=== PATIENT | female | born 1935 | race Caucasian/White ===

== ENCOUNTER 2017-05-26 14:06 | Inpatient (IN) ==
[2017-05-26] MEDS ORDERED: MORPHINE IV ONE (14:45)
[2017-05-26] MEDS ORDERED: ZOFRAN IV ONE (14:45)
[2017-05-26] MEDS ORDERED: MORPHINE ONE (14:52)
[2017-05-26 15:01] LABS: URINE MICRO REVIEW NEEDED? NO; URINE SOURCE CLEAN CATCH
[2017-05-26 15:03] LABS: BASO% 0.2 % (0.0-0.8); EOS# 0.01 X1000 (0.0-0.7); EOS% 0.1 % (0.0-10.0); HEMATOCRIT 31.3 % (37.0-47.0); HEMOGLOBIN 10.7 g/dL (12.0-16.0); LYMPH# 0.85 X1000 (1.2-3.4); LYMPH% 5.9 % (20.5-51.1); MANUAL DIFF NEEDED? NO; MCH 31.8 PG (27-31); MCHC 34.2 g/dL (33-37); MCV 93.2 FL (81-99); MONO# 1.13 X1000 (0.11-0.59); MONO% 7.9 % (1.7-9.3); MPV 10.2 FL (7.4-10.4); NEUT% 85.9 % (42.2-75.2); PLT 252 X1000 (130-400); RBC 3.36 XMIL (4.2-5.4)
[2017-05-26 15:05] LABS: BILIRUBIN URINE NEGATIVE (NEGATIVE); BLOOD URINE NEGATIVE (NEGATIVE); COLOR YELLOW; GLUCOSE URINE NEGATIVE (NEGATIVE); LEUKOCYTES URINE NEGATIVE (NEGATIVE); NITRITE URINE POSITIVE (NEGATIVE); PH URINE 5.5; PROTEIN URINE 30 mg/dL (NEGATIVE); SP GRAVITY URINE 1.009; TURBIDITY URINE CLEAR (CLEAR); UROBILINOGEN URINE NORMAL (NORMAL)
[2017-05-26 15:06] LABS: UR EPITHELIAL CELLS <10 /HPF (<10); URINE BACTERIA NEGATIVE /HPF; URINE CULTURE NEEDED? YES; URINE RBC <10 /HPF (<10); URINE WBC <10 /HPF (<10)
[2017-05-26 15:11] LABS: ALBUMIN 3.9 g/dL (3.5-5.0); INR 1.04; POTASSIUM 3.8 mmol/L (3.5-5.1); PROTIME 10.9 Seconds (9.2-11.7); PTT 27.7 Seconds (22.0-36.0); TOTAL BILIRUBIN 0.58 mg/dL (0.20-1.00); TOTAL PROTEIN 7.1 g/dL (6.3-8.3)
[2017-05-26] MEDS ORDERED: LR 1,000 ML IV ONE (15:53)
--- NOTE | 2017-05-26 16:12 | Diag Imaging Result Doc PS360 ---
EXAM: CT ABDOMEN/PELVIS W/O CONTRAST HISTORY: rectal pain, bleeding, fever TECHNIQUE: CT abdomen and pelvis without contrast. Dose reduction protocol. COMPARISON: None. FINDINGS: There are many scattered hepatic and splenic granuloma. Otherwise normal noncontrasted liver, spleen, pancreas and adrenal glands. I believe the gallbladder has been removed. Mildly dilated common bile duct. There are scattered renal cysts and nonspecific small nodular areas. No renal stones. No hydronephrosis. Moderate atherosclerosis. No aneurysmal dilatation to the aorta. No bowel obstruction. No inflammation about the cecum. There are many scattered diverticula in the descending and sigmoid colon. There is stool in the colon. The uterus has been removed. No pelvic mass. Urinary bladder is distended and appears normal without contrast. There is a nonspecific 1.6 x 2.6 x 1.6 cm isodense nodule lateral to the posterior left rectal wall. Fat separates this from the rectum. Questionable posterior rectal wall thickening. IMPRESSION: 1.Possible posterior rectal wall thickening. Further workup recommended. 2.Nodule posteriorly lateral to the left side of the rectum may represent an enlarged lymph node. 3.Hysterectomy 4.Diverticulosis 5.Constipation 6.Cholecystectomy 7.Renal nodules/cysts Electronically signed by Tristan Salazar 05/26/2017 4:10 PM
[2017-05-26] MEDS ORDERED: FLAGYL 1000 MG/NS 1,000 MG/200 ML IVPB IV ONE (16:44)
[2017-05-26] MEDS ORDERED: ZOSYN 3.375 GM in NS 50 ML IV ONE (16:44)
[2017-05-26] MEDS ORDERED: TYLENOL PO PRN (18:18)
[2017-05-26] MEDS ORDERED: MORPHINE IV PRN (18:18)
[2017-05-26] MEDS: NORCO-7.5 PO PRN (19:02)
[2017-05-26] MEDS: NS 1,000 ML IV SCH (20:22)
[2017-05-26] MEDS: PRILOSEC PO SCH (21:56)
[2017-05-26] MEDS: FLAGYL 500 MG/NS 500 MG/100 ML IVPB IV SCH ×2 (21:58→23:45)
[2017-05-26] MEDS: ZOSYN 3.375 GM in NS 50 ML IV SCH (23:10)
[2017-05-27] MEDS: ZOSYN 3.375 GM in NS 50 ML IV SCH ×4 (05:14→23:05)
[2017-05-27] MEDS: FLAGYL 500 MG/NS 500 MG/100 ML IVPB IV SCH ×4 (05:15→22:09)
[2017-05-27 05:44] LABS: MANUAL DIFF NEEDED? NO
[2017-05-27 05:51] LABS: BASO% 0.5 % (0.0-0.8); EOS# 0.11 X1000 (0.0-0.7); HEMATOCRIT 28.5 % (37.0-47.0); HEMOGLOBIN 9.6 g/dL (12.0-16.0); LYMPH# 1.22 X1000 (1.2-3.4); LYMPH% 21.9 % (20.5-51.1); MCH 30.9 PG (27-31); MCHC 33.7 g/dL (33-37); MCV 91.6 FL (81-99); MONO# 0.56 X1000 (0.11-0.59); MPV 10.1 FL (7.4-10.4); NEUT% 65.6 % (42.2-75.2); PLT 224 X1000 (130-400); RBC 3.11 XMIL (4.2-5.4)
[2017-05-27 05:58] LABS: HEMOGLOBIN A1C 5.6 % (4.8-6.0); INR 1.05; PROTIME 11.1 Seconds (9.2-11.7); PTT 27.9 Seconds (22.0-36.0)
[2017-05-27 06:07] LABS: ALBUMIN 3.2 g/dL (3.5-5.0); CALCIUM 8.2 mg/dL (8.8-10.2); MAGNESIUM 1.5 mg/dL (1.5-2.7); POTASSIUM 3.4 mmol/L (3.5-5.1); TOTAL BILIRUBIN 0.87 mg/dL (0.20-1.00); TOTAL PROTEIN 5.8 g/dL (6.3-8.3)
[2017-05-27 06:24] LABS: FREE T4 1.35 ng/dL (0.93-1.70)
[2017-05-27] MEDS ORDERED: PREPARATION H OINT TOP PRN (08:11)
[2017-05-27] MEDS ORDERED: XYLOCAINE 5% OINT TOP PRN (08:13)
[2017-05-27] MEDS: COLACE PO SCH ×2 (09:56→20:17)
[2017-05-27] MEDS: PRILOSEC PO SCH ×2 (09:57→20:16)
[2017-05-27] MEDS ORDERED: LOPRESSOR PO SCH (18:42)
[2017-05-27] MEDS: NS 1,000 ML IV SCH ×2 (18:44→22:10)
[2017-05-27] MEDS: GLUCOPHAGE PO SCH (18:59)
[2017-05-27] MEDS ORDERED: SYNTHROID PO SCH (20:00)
[2017-05-27] MEDS ORDERED: ZYLOPRIM PO SCH (20:00)
[2017-05-27] MEDS ORDERED: NEURONTIN PO SCH ×2 (20:00→21:00)
[2017-05-27] MEDS ORDERED: COZAAR PO SCH (20:00)
[2017-05-27] MEDS ORDERED: CATAPRES PO SCH (21:00)
[2017-05-27] MEDS ORDERED: NORVASC PO ONE (21:30)
[2017-05-27] MEDS: PRAVACHOL PO SCH (21:37)
[2017-05-28] MEDS: FLAGYL 500 MG/NS 500 MG/100 ML IVPB IV SCH (04:17)
[2017-05-28] MEDS: NORCO-7.5 PO PRN ×2 (04:18→17:08)
[2017-05-28] MEDS: ZOSYN 3.375 GM in NS 50 ML IV SCH ×5 (05:23→22:29)
[2017-05-28] MEDS: SYNTHROID PO SCH (06:23)
[2017-05-28] MEDS: NS 1,000 ML IV SCH ×2 (06:43→18:21)
[2017-05-28] MEDS: ZOFRAN IV PRN ×2 (07:35→17:08)
[2017-05-28] MEDS ORDERED: NORVASC PO SCH ×2 (09:00→21:00)
[2017-05-28] MEDS: PRILOSEC PO SCH ×2 (09:13→20:56)
[2017-05-28] MEDS: PRAVACHOL PO SCH (09:14)
[2017-05-28] MEDS: COLACE PO SCH ×2 (09:14→21:42)
[2017-05-28] MEDS: CATAPRES PO SCH ×2 (09:14→20:57)
[2017-05-28] MEDS: GLUCOPHAGE PO SCH ×2 (09:14→17:07)
[2017-05-28] MEDS: CULTURELLE PO SCH ×2 (09:17→20:57)
[2017-05-28] MEDS: LOPRESSOR PO SCH ×2 (17:07→18:21)
[2017-05-28] MEDS ORDERED: ZYLOPRIM PO SCH (21:00)
[2017-05-28] MEDS ORDERED: COZAAR PO SCH (21:00)
[2017-05-28] MEDS ORDERED: NEURONTIN PO SCH (21:00)
[2017-05-29] MEDS: ZOSYN 3.375 GM in NS 50 ML IV SCH ×2 (05:33→11:33)
[2017-05-29] MEDS: NS 1,000 ML IV SCH (05:34)
[2017-05-29] MEDS: SYNTHROID PO SCH (06:09)
[2017-05-29] MEDS: GLUCOPHAGE PO SCH (09:41)
[2017-05-29] MEDS: PRAVACHOL PO SCH (09:41)
[2017-05-29] MEDS: CATAPRES PO SCH (09:41)
[2017-05-29] MEDS: COLACE PO SCH (09:41)
[2017-05-29] MEDS: PRILOSEC PO SCH (09:42)
[2017-05-29] MEDS: CULTURELLE PO SCH (09:42)
[2017-05-29 12:40] VITALS: BP 143/63
== END 2017-05-29 14:46 | disposition home or self-care (01) ==
LOC: ED 14:06 → 4N 17:53
PROVIDERS: ATTEND Emergency Medicine